=== PATIENT | female | born 1985 | race Caucasian/White ===

== ENCOUNTER 2016-07-05 10:27 | Inpatient (IN) | payer OTHER ==
[2016-07-05] VITALS (7 sets, daily range): BP systolic 94–151; BP diastolic 54–78
[~2016-07-05] VITALS: Ht 167.6 cm; Wt 118.0 kg
[~2016-07-05 10:27] MED LIST: DOCU10CA PO; FERR325T3 PO; OXYC1TAB23 PO; PERCOCET PO; PRENATAL VITAMIN PO
[2016-07-05] MEDS ORDERED: TYLE325T5 PO (10:44)
[2016-07-05 13:12] LABS: BASO % 0.2 % (0.0-1.0); EOS # 0.1 K/mm3 (0.0-0.50); EOS % 0.7 % (0.0-3.0); LARGE UNSTAINED CELL # 0.1 K/mm3 (0.0-0.4); LARGE UNSTAINED CELL % 0.9 % (0.0-4.0); LYMPH # 1.5 K/mm3 (1.5-4.5); LYMPH % 12.9 % (24.0-44.0); MEAN CORPUSCULAR HEMOGLOBIN 31.6 pg (27.0-33.0); MEAN CORPUSCULAR VOLUME 93.1 fl (80.0-96.0); MONO # 0.5 K/mm3 (0.0-0.8); MONO % 4.1 % (0.0-5.0); NEUTROPHILS # 9.6 K/mm3 (1.8-7.7); NEUTROPHILS % 81.2 % (36.0-66.0); PLATELET COUNT, AUTOMATED 200 k/mm3 (150-450); RED CELL DISTRIBUTION WIDTH 13.6 % (11.5-14.5); WHITE BLOOD COUNT 11.8 K/mm3 (4.0-10.0)
[2016-07-05] MEDS ORDERED: LR 1,000 ML IV SCH (16:57)
[2016-07-05] MEDS ORDERED: OXYTOCIN DRIP 30 UNITS in APPROPRIATE DILUENT 1 EA IV SCH (17:00)
[2016-07-05] MEDS ORDERED: ACETAMINOPHEN 500 MG TAB PO ONE (21:15)
[2016-07-06] VITALS (7 sets, daily range): BP systolic 101–131; BP diastolic 55–75
[2016-07-06] MEDS ORDERED: REFRIGERATOR IV KEYS XX PRN (03:15)
[2016-07-06] MEDS ORDERED: EPIDURAL COMMENT XX SCH (03:15)
[2016-07-06] MEDS ORDERED: ONDANSETRON 4MG/2ML VIAL (J2405) IV PRN ×3 (03:15→12:00)
[2016-07-06] MEDS ORDERED: diphenhydrAMINE INJ 50MG/ML VIAL (J1200) IV PRN ×2 (03:15→08:30)
[2016-07-06] MEDS ORDERED: NALOXONE INJ 0.4 MG/1 ML VIAL (J2310) IV PRN (03:15)
[2016-07-06] MEDS ORDERED: ePHEDrine SULFATE 25 MG/5 ML(5MG/ML) SYRINGE IV PRN (03:15)
[2016-07-06] MEDS ORDERED: EPIDURAL/PCA KEYS XX PRN (03:15)
[2016-07-06] MEDS ORDERED: FENTANYL/ROPIVACAINE/NACL BAG 200 ML EPIDURAL SCH (03:15)
[2016-07-06] MEDS ORDERED: LACTATED RINGER'S 1000 ML IV PRN (03:15)
[2016-07-06] MEDS ORDERED: ceFAZolin 2 GM/D5W 50 ML IV BAG (J0690) As Ordered ONE (06:35)
[2016-07-06] MEDS ORDERED: BICITRA 30ML SOLN UDC As Ordered ONE (06:35)
[2016-07-06] MEDS ORDERED: ACETAMINOPHEN 650 MG SUPP As Ordered ONE (06:36)
[2016-07-06] MEDS ORDERED: BUPIVACAINE HCL 0.25% 30 ML VIAL As Ordered ONE (06:36)
[2016-07-06] MEDS ORDERED: BUPIVACAINE HCL 0.25% 10 ML VIAL As Ordered ONE (06:37)
[2016-07-06] MEDS ORDERED: ACETAMINOPHEN 650 MG SUPP PR SCH (06:45)
[2016-07-06] MEDS ORDERED: BICITRA 30ML SOLN UDC PO ONE (06:45)
[2016-07-06] MEDS ORDERED: BUPIVACAINE HCL 0.25% 10 ML VIAL SC ONE (06:45)
[2016-07-06] MEDS ORDERED: ePHEDrine SULFATE 25 MG/5 ML(5MG/ML) SYRINGE As Ordered ONE (06:58)
[2016-07-06] MEDS ORDERED: LIDOCAINE 2% W/EPIN INJ 20ML **PRES FREE As Ordered ONE (06:58)
[2016-07-06] MEDS ORDERED: ONDANSETRON 4MG/2ML VIAL (J2405) As Ordered ONE (06:58)
[2016-07-06] MEDS ORDERED: OXYTOCIN INJ 10 UNITS/ML VIAL (J2590) As Ordered ONE ×3 (06:58→07:18)
[2016-07-06] MEDS ORDERED: SODIUM BICARBONATE 8.4% INJ 50MEQ 50 ML VIAL As Ordered ONE (06:58)
[2016-07-06] MEDS ORDERED: KETOROLAC 60 MG/2 ML VIAL (J1885) As Ordered ONE (06:58)
[2016-07-06] MEDS ORDERED: dexameTHASONE 4 MG/ML 1ML VIAL (J1100) As Ordered ONE (06:58)
[2016-07-06] MEDS ORDERED: MORPHINE PRES-FREE INJ 10 MG/10 ML VIAL (J2274) As Ordered ONE (07:23)
[2016-07-06 07:25] LABS: CORD GAS ABE A -0.8; CORD GAS HCO3 A 26.3 MEQ/L; CORD GAS HCO3 V 23.7 MEQ/L; CORD GAS O2 SAT A 47.2 %; CORD GAS O2 SAT V 80.3 %; CORD GAS PCO2 A 52.5 mmHg; CORD GAS PCO2 V 43.6 mmHg; CORD GAS PH A 7.317 UNITS; CORD GAS PH V 7.353 UNITS; CORD GAS PO2 A 22.5 mmHg; CORD GAS SBC A 22.6 MEQ/L; CORD GAS SBC V 22.4 MEQ/L; CORD GAS TCO2 A 27.9 MEQ/L
[2016-07-06] MEDS ORDERED: HYDROmorphone HCL 1 MG/ML SYRINGE (J1170) IV PRN (08:30)
[2016-07-06] MEDS ORDERED: NALBUPHINE HCL 10 MG/ML AMP (J2300) IV PRN (08:30)
[2016-07-06] MEDS ORDERED: MEPERIDINE INJ 25 MG/ML VIAL (J2175) IV PRN (08:30)
[2016-07-06] MEDS ORDERED: LR 1,000 ML IV SCH (08:30)
[2016-07-06] MEDS ORDERED: PERCOCET 5MG/325MG TAB PO PRN ×2 (08:30→12:00)
[2016-07-06] MEDS ORDERED: fentaNYL 100 MCG/2 ML INJECTION (J3010) IV PRN (08:30)
[2016-07-06] MEDS ORDERED: METOCLOPRAMIDE INJ 10MG/2ML VIAL (J2765) IV PRN (08:30)
--- NOTE | 2016-07-06 08:31 | RO ---
DATE OF PROCEDURE: 07/06/2016 PREOPERATIVE DIAGNOSES: Failed trial of labor after (TOLAC), failure to descend, failure to dilate non-reassuring heart strip, deep transverse arrest, asynclitism. POSTOPERATIVE DIAGNOSES: Failed trial of labor after (TOLAC), failure to descend, failure to dilate non-reassuring heart strip, deep transverse arrest, asynclitism. OPERATION PROPOSED: Repeat section. OPERATION PERFORMED: Repeat SURGEON: Dr. Milton Caal HOGSHEAD OPENER: Dr. Leonard Mock. ANESTHESIA: Epidural plus local anesthetic for intraperitoneal procedures. ESTIMATED BLOOD LOSS: 500 mL DESCRIPTION OF PROCEDURE: Under adequate anesthesia, prepped, draped the supine position, a Miner catheter in the bladder draining clear urine, sequential on board. Acetaminophen suppository 39 mg per rectum, 2 grams of Ancef IV preop. Time-out was adequate. A low transverse incision was made through the previous layers, passing through abdominal layers securing hemostasis. Opening peritoneal cavity interestingly that the head was pointing into the right lower quadrant completely not in the vaginal canal. Low transverse incision was made into the uterus with the uterine lower segment very thin. The patient had been laboring. Clear liquor. We delivered a live female infant weighing 9 pounds 9 ounces 4324 grams, of 9 and 10 at one and five minutes respectively. Arterial and venous pH was performed. Uterus contracted well under Pitocin. Manual removal of placenta and sweeping the uterus with a dry sponge. No evidence of retained products or membranes. The lower segment was oversewn in usual fashion in two layers and reperitonealization was performed. With instrument and pad counts correct, ovaries and tubes appeared to be normal, the uterus contracted well under Pitocin. The abdomen then closed running stitch for the peritoneum, same for the fascia, interrupted subcutaneous Dexon to the skin. Marcaine 0.25%, 7 mL. We then used Mastisol and Prevena wound VAC. The patient had one previously and is well versed on what to do on how to maintain it. The patient tolerated procedure well was taken to recovery.
[2016-07-06] MEDS: PRENATAL VITAMIN TAB PO SCH (09:00)
[2016-07-06] MEDS: LR 1,000 ML IV SCH ×3 (11:53→23:56)
[2016-07-06] MEDS ORDERED: RHOGAM 300 MCG (1500 IU) INJ (J2790) IM SCH (12:00)
[2016-07-06] MEDS ORDERED: MEASLES,MUMPS,RUBELLA VACCINE INJ (MMR-II) (90707) SC SCH (12:00)
[2016-07-06] MEDS: KETOROLAC 30 MG/ML VIAL (J1885) IV SCH ×2 (13:55→18:47)
[2016-07-06] MEDS: DOCUSATE SODIUM 100 MG CAP PO SCH (22:54)
[2016-07-07] MEDS: KETOROLAC 30 MG/ML VIAL (J1885) IV SCH ×2 (00:48→06:22)
[2016-07-07 02:00] VITALS: BP 126/58
[2016-07-07 06:00] VITALS: BP 119/56
--- NOTE | 2016-07-07 06:53 | IPNPDOC ---
Text Note Date of Service The patient was seen on 07/07/16. NOTE Post-Op Day 1 Waleska is a 31yo [id number] doing well on post-op day 1 s/p uncomplicated RLTCS indicated for arrest of dilation at 41w0d after presenting for induction of labor for late term gestation and progressing to 8cm. She is . Lochia normal, spontaneously voiding and ambulating without difficulty. Tolerating regular diet. Denies f/c/n/v/SOB/CP/GORE/abdominal pain. Vitals wnl, afebrile Exam: General: WDWN, NAD, resting comfortably Cardiac: S1S2 present, no murmurs Lungs: CTAB, no w/c/r Abdomen: soft, NTTP, fundus firm u-2cm, pfannensteil covered by functioning wound vac with no surrounding erythema Extremities: no tenderness of calves bilaterally Labs: H/H (admission) 13.5/39.7 H/H (POD 1) pending Assessment: Waleska is a 31yo [id number] doing well on post-op day 1 s/p uncomplicated RLTCS indicated for arrest of dilation at 41w0d after presenting for induction of labor for late term gestation and progressing to 8cm. Vitals wnl, benign exam. No e/o infection, hemodynamically stable. Plan: -routine /post-operative care -percocet and motrin prn pain -regular diet -encourage /ambulation/use of IS -routine wound vac care -likely discharge to home tomorrow Dr. Raymond Breen MD [place] [facility], I+O Tamika SALES I+O Vital Signs Date Time Temp Pulse Resp B/P Pulse Ox O2 Delivery O2 Flow Rate FiO2 07/07/16 06:00 98.2 101 18 119/56 99 Room Air I&O- Last 24 Hours up to 6 AM 07/07/16 06:00 Intake Total 124 ml Output Total 2400 ml Balance -2276 ml RAYMOND BREEN MD Jul 07, 2016 06:53
[2016-07-07 08:35] LABS: MEAN CORPUSCULAR HEMOGLOBIN 32.6 pg (27.0-33.0); MEAN CORPUSCULAR HGB CONC 34.5 g/dl (32.0-36.5); MEAN CORPUSCULAR VOLUME 94.4 fl (80.0-96.0); RED CELL DISTRIBUTION WIDTH 13.5 % (11.5-14.5); WHITE BLOOD COUNT 11.4 K/mm3 (4.0-10.0)
[2016-07-07] MEDS: DOCUSATE SODIUM 100 MG CAP PO SCH ×2 (08:41→20:47)
[2016-07-07] MEDS: PRENATAL VITAMIN TAB PO SCH (08:41)
[2016-07-07] MEDS: PERCOCET 5MG/325MG TAB PO PRN ×3 (12:04→20:49)
[2016-07-07 14:05] VITALS: BP 126/65
[2016-07-07] MEDS: IBUPROFEN 800 MG TAB PO SCH ×2 (14:48→23:15)
[2016-07-07 18:09] VITALS: BP 133/76
[2016-07-08] MEDS: PERCOCET 5MG/325MG TAB PO PRN ×3 (00:39→09:10)
[2016-07-08 05:39] VITALS: BP 133/71
[2016-07-08] MEDS: IBUPROFEN 800 MG TAB PO SCH (06:35)
[2016-07-08] MEDS ORDERED: COLA100C PO (07:19)
[2016-07-08] MEDS ORDERED: IBUP-1114 PO (07:20)
[2016-07-08] MEDS ORDERED: OXYC1TAB23 PO ×2 (07:20→07:21)
[2016-07-08] MEDS: DOCUSATE SODIUM 100 MG CAP PO SCH (09:10)
[2016-07-08] MEDS: PRENATAL VITAMIN TAB PO SCH (09:10)
== END 2016-07-08 11:55 | disposition home or self-care (01) | DRG 766 ==
LOC: M LDI 10:27 → M OBS 07-06 09:26
PROVIDERS: ADMIT Advanced Practice Midwife; ATTEND Advanced Practice Midwife
PROC: 3E033VJ Introduction of Other Hormone into Peripheral Vein, Percutaneous Approach (ICD-10-PCS; 2016-07-05)
PROC: 10D00Z1 Extraction of Products of Conception, Low, Open Approach (ICD-10-PCS; principal; 2016-07-06 06:44)
DX: O32.4XX0 Maternal care for high head at term, not applicable or unspecified (principal); Z37.0 Single live birth; O34.211 Maternal care for low transverse scar from previous cesarean delivery; O76 Abnormality in fetal heart rate and rhythm complicating labor and delivery; O62.0 Primary inadequate contractions; O66.41 Failed attempted vaginal birth after previous cesarean delivery; O48.0 Post-term pregnancy; Z3A.41 41 weeks gestation of pregnancy

== ENCOUNTER 2016-08-02 17:12 | Emergency (ER) | payer OTHER ==
[~2016-08-02] VITALS: Ht 167.6 cm; Wt 108.9 kg
[~2016-08-02 17:12] MED LIST changes: +COLA100C3 PO; +IBUP-1114 PO; +TYLE325T5 PO
[2016-08-02 17:54] LABS: MEAN CORPUSCULAR HGB CONC 35.1 g/dl (32.0-36.5); RED CELL DISTRIBUTION WIDTH 12.4 % (11.5-14.5); WHITE BLOOD COUNT 9.1 K/mm3 (4.0-10.0)
--- NOTE | 2016-08-02 19:07 | REP ---
ABDOMINAL ULTRASOUND: HISTORY: Assess for incision abscess. COMPARISON: None. Multiple ultrasonographic images over the region of interest show a 1 x 0.5 x 1.4 cm sized irregular hypoechoic area suggesting a small deep subcutaneous abscess versus resolving hematoma. This needs to be correlated clinically with appropriate followup. Signed by Vinnie Desai DO 08/02/2016 07:29 P
[2016-08-02] MEDS ORDERED: KEFL500C7 PO (20:58)
[2016-08-02] MEDS ORDERED: CEPHALEXIN 500 MG CAP PO ONE (21:00)
[2016-08-02 21:09] VITALS: BP 149/81
== END 2016-08-02 21:16 | disposition home or self-care (01) ==
LOC: M ED 17:42
DX: O86.0 Infection of obstetric surgical wound (principal); Y92.9 Unspecified place or not applicable; Y93.9 Activity, unspecified; Z79.899 Other long term (current) drug therapy

== ENCOUNTER → 2016-09-23 | Outpatient (CLI) | payer OTHER ==
[~2016-09-23] MED LIST changes: -COLA100C3 PO; +COLA100C5 PO; +IBUP200T45 PO; +KEFL500C17 PO
--- NOTE | 2016-10-06 00:32 | ECWPNPC ---
PATIENT NAME: LE SAINZ : 1985 GENDER: FEMALE VISIT DATE: 09/23/2016 DISCHARGE DATE: 09/23/16 1243 VISIT LOCKED DATE TIME: PHYSICIAN: DARI VIZCARRA RESOURCE: DARI VIZCARRA REASON FOR APPOINTMENT 1. LUMBAR HISTORY OF PRESENT ILLNESS NEW PATIENT CONSULT: 31 Y/O FEMALE,FT [employer]UM SOL[employer]ER REFERRED BY [facility] FOR EVALUATION OF LOW BACK PAIN L>R.PAIN BEGAN AFTER BASIC TRAINING IN 2012.PAIN IS NON RADICULAR IN NATURE.PAIN IS AGGREVATED BY LIFTING,STANDING ,RUNNING AND JUMPING.HAD BABY GOMEZ 3 MONTHS AGO AND IS FINDING IT HARD FOR HER TO PICK HER UP AND CARE FOR HER DUE TO PAIN.RATING PAIN VAS 5/10.PAIN IS RELIEVED SOMEWHAT WITH LAYING DOWN AND NSAIDS.PAIN IS WORSE IN AM AND PM.DENIES RECENT FEVER,ILLNESS OR WEIGHT LOSS.DENIES BOWEL OR BLADDER INCONTINENCE.HAS HAD PT IN 2013 WITH NO IMPROVEMENT.HAS HAD RADIOFREQUENCY IN PAST IN 2015 WITH REPORTED IMPROVEMENT UNTIL PAST FEW MONTHS.PATIENT WOULD LIKE TO PURSUE RADIOFREQUENCY AGAIN. WHEN DID YOUR PAIN FIRST START? . BRIEFLY DESCRIBE HOW YOUR PAIN STARTED? . HOW DOES YOUR PAIN CHANGE WITH TIME? . DOES YOUR PAIN AWAKEN YOU FROM SLEEP? . HOW MANY HOURS OF SLEEP DO YOU NORMALLY GET? . ANY DIAGNOSTIC TESTING? . FACILITY WHERE TESTS WERE DONE? ____. PAIN TREATMENT TREATMENT YES CANCER HAVE YOU EVER HAD ANY TYPE OF CANCER?NO NO. 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 SURGICAL HISTORY APPENDECTOMY 06/2010 C-SECTIONS 2014 AND 2016 FAMILY HISTORY FATHER: ALIVE MOTHER: ALIVE 1 SISTER(S) - HEALTHY. 2DAUGHTER(S) - HEALTHY. SOCIAL HISTORY GENERAL: TOBACCO USE ARE YOU A:NONSMOKER RECREATIONAL DRUG USE DRUG USE?NO CAFFEINE CAFFEINE USE?YES HOW OFTEN AND HOW MUCH? 2 CUPS COFFEE/DAY AND 2-3 CANS SODA PER DAY GNOSTICISM [id number] NONE LANGUAGE LANGUAGES SPOKEN:PRYDEINIG LEARNING BARRIERS / SPECIAL NEEDS BARRIERS TO LEARNING?NO HEARING IMPAIRED?NO VISION IMPAIRED?NO COGNITIVELY IMPAIRED?NO READINESS TO LEARN?YES LEARNING PREFERENCES?NO LEARNING CAPABILITIES PRESENT?YES EMOTIONAL BARRIERS?NO SPECIAL DEVICES?NO DIRECTOR OF FEDERAL SALES NEEDED?NO PSYCHOLOGICAL HX TREATMENTNO PAIN CLINIC PFS, CLERGY, PUBLIC HEALTH REFERRALS PFS REFERRAL NEEDED?NO CLERGY REFERRAL NEEDED?NO PUBLIC HEALTH REFERRAL NEEDED?NO WAS THE PROVIDER NOTIFIED OF ANY PERTINENT INFO?NO HAS THE PATIENT BEEN EDUCATED REGARDING HIS/HER PLAN OF CARE?YES HAS THE PATIENT BEEN EDUCATED REGARDING PAIN, THE RISK FOR PAIN, THE IMPORTANCE OF EFFECTIVE PAIN MANAGEMENT, AND THE PAIN ASSESSMENT PROCESS?YES PATIENT: ____. ADVANCE DIRECTIVES HEALTH CARE PROXY?NO WOULD YOU LIKE MORE INFORMATION?NO DO YOU HAVE A DNR?NO WOULD YOU LIKE MORE INFORMATION?NO LIVING WILL?NO WOULD YOU LIKE MORE INFORMATION?NO POWER OF TUBE SIZER OPERATOR?NO WOULD YOU LIKE MORE INFORMATION?NO REVIEW OF SYSTEMS REVIEWED BY: PROVIDER: DARI MARIE . CONSTITUTIONAL: ANY CHANGE IN YOUR MEDICAL CONDITION? NO . CHILLS NO . FEVER NO . INFECTION: DO YOU HAVE NEW INFECTIONS? NO . DO YOU HAVE HISTORY OF MRSA? NO . MUSCULOSKELETAL: ANY NEW PATTERNS OF PAIN OR NUMBNESS? NO . SYTEMIC LUPUS NO . GASTROENTEROLOGY: ANY NEW CHANGE IN BOWEL CONTROL? NO . BARRETTS ESOPHAGUS NO . CIRRHOSIS NO . HEPATITIS NO . LIVER FAILURE NO . ACID REFLUX NO . UNEXPLAINED WEIGHT LOSS NO . GENITOURINARY: ANY NEW CHANGE IN BLADDER CONTROL? NO . IS THERE A CHANCE YOU COULD BE ? NO . HEMATOLOGY/LYMPH: DO YOU TAKE ANY BLOOD THINNERS? (FOR EXAMPLE- COUMADIN, PLAVIX, AGGRENOX, PLATEL, PRADAXA, OR XARELTO) NO . WHEN WAS YOUR LAST DOSE? DATE: TIME: . LOW PLATELET COUNT NO . SICKLE CELL DISEASE NO . VON WILLIEBRANDS NO . FACTOR V LEIDEN NO . THALLASEMIA NO . ANEMIA NO . EASY BRUISING NO . NEUROLOGY: HAVE YOU FALLEN IN THE PAST 6 MONTHS? NO . ANY NEW EXTREMITY NUMBNESS OR WEAKNESS? NO . HEAD INJURY NO . DEMENTIA NO . CEREBRAL PALSY NO . MULTIPLE SCLEROSIS NO . DIZZINESS NO . HEADACHE NO . STROKES NO . VERTIGO NO . CARDIOLOGY: DO YOU HAVE A PACEMAKER OR DEFIBRILLATOR? NO . ANGINA NO . HEART ATTACK NO . HEART SURGERY NO . CONGESTIVE HEART FAILURE/FLUID OVERLOAD NO . CHEST PAIN NO . HIGH BLOOD PRESSURE NO . IRREGULAR HEART BEAT NO . RESPIRATORY: HAVE YOU BEEN SICK IN THE PAST WEEK? YES . FEVER NO . FLU LIKE SYMPTOMS? NO . CPAP NO . BYPAP NO . ASTHMA NO . EMPHYSEMA NO . CHRONIC LUNG DISEASES NO . SHORTNESS OF BREATH ON EXERTION NO . DO YOU USE ANY TYPE OF TOBACCO (SMOKE, SMOKELESS, CHEW)? NO . COUGH NO . SNORING NO . INTEGUMENTARY: DO YOU HAVE ANY RASHES OR OPEN SORES? NO . ALLERGIC/IMMUNO: ARE YOU ALLERGIC TO SHELLFISH OR IV DYE? NO . ANY NEW ALLERGIES? NO . PSYCHIATRIC: DO YOU HAVE THOUGHTS OF HURTING YOURSELF OR SOMEONE ELSE? NO . ARE YOU ABUSED, NEGLECTED, OR IN AN UNSAFE ENVIRONMENT? NO . ENDOCRINOLOGY: ARE YOU DIABETIC? NO . THYROID DISORDER NO . OTHER: DO YOU NEED ANY PRESCRIPTIONS? YES . IF YES, PLEASE LIST: &QUOT;INTERESTED IN CELEBREX&QUOT; . ANY NEW PROBLEMS WITH YOUR MEDICATIONS? NO . WHEN DID YOU LAST EAT? ____ . WHEN DID YOU LAST DRINK? ____ . WHAT DID YOU LAST DRINK? ____ . NAME OF PERSON DRIVING YOU HOME? ____ . DO YOU HAVE ANY OTHER QUESTIONS OR CONCERNS YES, OPTIONS FOR TREATMENT . VITAL SIGNS WT 240 LBS, HT 56 IN, BMI 53.80 INDEX, BP 131/82 MM HG, HR 89 /MIN, RR 18 /MIN, TEMP 97.2 F, OXYGEN SAT % 96, NA INITIALS [id number], REVIEWED BY: CS. EXAMINATION GENERAL EXAMINATION: GENERAL APPEARANCE:ALERT AND ORIENTED.NO ACUTE DISTRESS. PSYCHAFFECT FLAT. NECK:NO LYMPHADENOPATHY, NO MASS. LUNGS:LUNG MERCHANT ARE CLEAR TO AUSCULTATION BILATERALLY. GOOD MOVEMENT OF AIR. HEART:S1, S2 IN A REGULAR RATE AND RHYTHM. NO SIGNIFICANT MURMURS, RUBS OR GALLOPS NOTED. ABDOMEN:SOFT, NON-TENDER, NO ORGANOMEGALY, BOWEL SOUNDS ARE NORMAL. LUMBAR SPINE/LOWER BACK: PALPATION:SPECIFIC POINT TENDERNESS OVER LEFT L4/5-L5/S1 FACET WITH FACET LOADING. MOTOR SYSTEM:5/5 BLE. SENSORY EXAM:NORMAL BILATERAL LE. REFLEXES:2/4 AND SYMMETRIC BLE. ASSESSMENTS LUMBOSACRAL SPONDYLOLYSIS - M43.07 (PRIMARY) TREATMENT LUMBOSACRAL SPONDYLOLYSIS START CELEBREX CAPSULE, 200 MG, 1 CAPSULE WITH FOOD, ORALLY, ONCE A DAY, 30 DAY(S), 30, REFILLS 2 NOTES: REQUEST DIAGNOSTIC L3/4-L4/5-DIAGNOSTIC LUMBAR FACET BLOCK. DIAGNOSTIC IMAGING [facility] MRI SPINE, L.S. WITHOUT [id number] PREVENTIVE MEDICINE PAIN CLINIC TEACHING: MEDICATIONS CELEBREX INFORMATION DISCUSSED WITH PATIENT. PROCEDURE TEACHING PRE-PROCEDURE INSTRUCTIONS GIVEN TO PATIENT. PATIENT HAS HAD THIS PROCEDURE IN THE PAST.. PROCEDURE CODES FA211 ESTABILISHED PATIENT [facility] CHARGE DISPOSITION & COMMUNICATION FOLLOW UP 2WK POST (REASON: REQUEST DIAGNOSTIC L3/4-L4/5-DIAGNOSTIC LUMBAR FACET BLOCK) ELECTRONICALLY SIGNED BY FRANK FUNG ON 10/05/2016 AT 05:27 PM EDT DISCLAIMER : THIS IS A VISIT SUMMARY EXTRACTED FROM THE [employer] CHART. IT IS NOT A COPY OF THE [employer] PROGRESS NOTE. TRUPTI
== END ==
LOC: M PAIN 11:20
PROVIDERS: ATTEND Nurse Practitioner Family
DX: M43.07 Spondylolysis, lumbosacral region (principal)

== ENCOUNTER 2016-11-25 03:15 | Emergency (ER) | payer OTHER ==
[~2016-11-25 03:15] MED LIST changes: -IBUP200T45 PO
[2016-11-25] MEDS ORDERED: IBUP200T45 PO (03:22)
[2016-11-25 06:34] LABS: BASO # 0.1 K/mm3 (0.0-0.2); EOS # 0.1 K/mm3 (0.0-0.50); EOS % 1.9 % (0.0-3.0); LARGE UNSTAINED CELL # 0.1 K/mm3 (0.0-0.4); LARGE UNSTAINED CELL % 1.6 % (0.0-4.0); LYMPH # 1.8 K/mm3 (1.5-4.5); LYMPH % 24.3 % (24.0-44.0); MEAN CORPUSCULAR HEMOGLOBIN 31.5 pg (27.0-33.0); MEAN CORPUSCULAR HGB CONC 34.2 g/dl (32.0-36.5); MEAN CORPUSCULAR VOLUME 92.2 fl (80.0-96.0); MONO # 0.3 K/mm3 (0.0-0.8); MONO % 3.6 % (0.0-5.0); NEUTROPHILS # 4.8 K/mm3 (1.8-7.7); NEUTROPHILS % 67.6 % (36.0-66.0); PLATELET COUNT, AUTOMATED 217 k/mm3 (150-450); RED CELL DISTRIBUTION WIDTH 12.7 % (11.5-14.5)
[2016-11-25 06:53] LABS: CONTROL LINE HCG INT CTR LINE PRESENT
[2016-11-25 06:57] LABS: ANION GAP 9 MEQ/L (8-16); BLOOD UREA NITROGEN 16 MG/DL (7-18); CALCIUM LEVEL 9.3 MG/DL (8.5-10.1); CARBON DIOXIDE LEVEL 25 MEQ/L (21-32); CHLORIDE LEVEL 109 MEQ/L (98-107); CREATININE FOR GFR 0.61 MG/DL (0.55-1.02); GLOMERULAR FILTRATION RATE > 60.0 (>60); GLUCOSE, FASTING 90 MG/DL (70-105); POTASSIUM SERUM 3.9 MEQ/L (3.5-5.1); SODIUM LEVEL 143 MEQ/L (136-145)
--- NOTE | 2016-11-25 08:00 | REP ---
Chest x-ray: Two views. History: Chest pain. Fluttering. . Comparison study: October 07, 2014 . Findings: The lungs are well inflated and free of infiltrate. The pleural angles are sharp. The heart size is normal. Pulmonary vasculature is not increased. No significant bony abnormality is seen. EKG monitoring electrodes overlie the chest. Impression: Negative chest x-ray. Signed by Richi Bonilla MD 11/25/2016 07:51 A
[2016-11-25 08:30] VITALS: BP 107/71
--- NOTE | 2016-11-25 08:52 | ECGEPIP ---
Stationary ECG Study [facility] - ED Test Date: 2016-11-25 Pat Name: EL SAINZ Department: Room: - Gender: F Dub Room Engineer: tk : [id number] Requested By: CITLALY El Order Number: [id number] Reading MD: Bhavna Villarreal Measurements Intervals [place] Rate: 77 P: 38 WI: 129 QRS: 21 QRSD: 113 T: 21 QT: 388 QTc: 439 Interpretive Statements SINUS RHYTHM MODERATE INTRAVENTRICULAR CONDUCTION DELAY DECREASED RATE 10/07/14 Electronically Signed On 11-25-2016 8:52:02 EDT by Bhavna Villarreal
== END 2016-11-25 08:32 | disposition home or self-care (01) ==
LOC: M ED 03:15
DX: R00.2 Palpitations (principal); M54.9 Dorsalgia, unspecified

== ENCOUNTER → 2016-12-20 | Outpatient (CLI) | payer OTHER ==
[~2016-12-20] MED LIST changes: +BUPIVACAINE HCL 0.25% 30 ML VIAL As Ordered ONE; +IBUP200T45 PO; +ISOVUE-M 300 61% 15ML VIAL (Q9967) As Ordered ONE; +LIDOCAINE 1% SDV INJ 30 ML VIAL As Ordered ONE
--- NOTE | 2016-12-20 12:29 | REP ---
Partial lumbar spine series: Two views. History: Left facet block for pain. 26 seconds of fluoroscopy time is reported. Findings: A sequence of two last image hold fluoroscopic spot radiographs of the lumbar spine document various needle positions and contrast injections associated with facet block procedure. Signed by Richi Bonilla MD 12/20/2016 02:15 P
--- NOTE | 2016-12-21 00:31 | ECWPNPC ---
PATIENT NAME: EL SAINZ : 1985 GENDER: FEMALE VISIT DATE: 12/20/2016 DISCHARGE DATE: 12/20/16 1130 VISIT LOCKED DATE TIME: PHYSICIAN: JAYSON DICKINSON RESOURCE: JAYSON DICKINSON REASON FOR APPOINTMENT 1. DIAGNOSTIC LUMBAR FACET BLOCK HISTORY OF PRESENT ILLNESS HISTORY OF PRESENT ILLNESS: PAIN THE PATIENT DESCRIBES THE PAIN... 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 SURGICAL HISTORY APPENDECTOMY 06/2010 C-SECTIONS 2014 AND 2016 FAMILY HISTORY FATHER: ALIVE MOTHER: ALIVE 1 SISTER(S) - HEALTHY. 2DAUGHTER(S) - HEALTHY. REVIEW OF SYSTEMS REVIEWED BY: PROVIDER: JAYSON DICKINSON MD . CONSTITUTIONAL: ANY CHANGE IN YOUR MEDICAL CONDITION? NO . CHILLS NO . FEVER NO . INFECTION: DO YOU HAVE NEW INFECTIONS? NO . DO YOU HAVE HISTORY OF MRSA? NO . MUSCULOSKELETAL: ANY NEW PATTERNS OF PAIN OR NUMBNESS? NO . GASTROENTEROLOGY: ANY NEW CHANGE IN BOWEL CONTROL? NO . GENITOURINARY: ANY NEW CHANGE IN BLADDER CONTROL? NO . IS THERE A CHANCE YOU COULD BE ? NO . HEMATOLOGY/LYMPH: DO YOU TAKE ANY BLOOD THINNERS? (FOR EXAMPLE- COUMADIN, PLAVIX, AGGRENOX, PLATEL, PRADAXA, OR XARELTO) NO . WHEN WAS YOUR LAST DOSE? DATE: TIME: . NEUROLOGY: HAVE YOU FALLEN IN THE PAST 6 MONTHS? NO . ANY NEW EXTREMITY NUMBNESS OR WEAKNESS? NO . CARDIOLOGY: DO YOU HAVE A PACEMAKER OR DEFIBRILLATOR? NO . RESPIRATORY: HAVE YOU BEEN SICK IN THE PAST WEEK? NO . FEVER NO . FLU LIKE SYMPTOMS? NO . COUGH NO . INTEGUMENTARY: DO YOU HAVE ANY RASHES OR OPEN SORES? NO . ALLERGIC/IMMUNO: ARE YOU ALLERGIC TO SHELLFISH OR IV DYE? NO . ANY NEW ALLERGIES? NO . PSYCHIATRIC: DO YOU HAVE THOUGHTS OF HURTING YOURSELF OR SOMEONE ELSE? NO . ARE YOU ABUSED, NEGLECTED, OR IN AN UNSAFE ENVIRONMENT? NO . ENDOCRINOLOGY: ARE YOU DIABETIC? NO . OTHER: DO YOU NEED ANY PRESCRIPTIONS? NO . IF YES, PLEASE LIST: ____ . ANY NEW PROBLEMS WITH YOUR MEDICATIONS? NO . WHEN DID YOU LAST EAT? ____9 PM LAST NIGHT 12-19-16 . WHEN DID YOU LAST DRINK? ____9 P LAST NIGHT 12-19-16 . WHAT DID YOU LAST DRINK? ____WATER . NAME OF PERSON DRIVING YOU HOME? ____ANTHONY . DO YOU HAVE ANY OTHER QUESTIONS OR CONCERNS NO . VITAL SIGNS WT 250.2 LBS, HT 56 IN, BMI 56.09 INDEX, BP 120/66 MM HG, HR 90 /MIN, RR 18 /MIN, TEMP 97.7 F, OXYGEN SAT % 97%, NA INITIALS SC 08:56. ASSESSMENTS SPONDYLOSIS WITHOUT MYELOPATHY OR RADICULOPATHY, LUMBAR REGION - M47.816 (PRIMARY) PROCEDURES PN LUMBAR FACET BLOCK DIAGNOSTIC PRE PROCEDURE DIAGNOSIS LUMBAR SPONDYLOSIS POST PROCEDURE DIAGNOSIS LUMBAR SPONDYLOSIS PROCEDURE LEFT L2-3 AND LEFT L3-4 FACET BLOCK DIAGNOSTIC NUMBER [address] JAYSON DICKINSON CALL CENTER CONSULTANT NONE ANESTHESIA LOCAL PRE PROCEDURE NOTE THE PATIENT WITH HISTORY OF CHRONIC LOW BACK PAIN. I EVALUATED THE PATIENT AND REVIEWED THE CHART. I WENT OVER THE RISKS, ALTERNATIVES, AND BENEFITS ASSOCIATED WITH THIS PROCEDURE. THE PATIENT WOULD LIKE TO PROCEED AND GAVE CONSENT TO PERFORM THE PROCEDURE. AGREED WITH THE PATIENT WE ARE DOING THIS PROCEDURE TO DETERMINE IF THE PATIENT IS A CANDIDATE FOR A RADIOFREQUENCY ABLATION OF THE FACETS JOINTS. THE PATIENT DENIES UNEXPLAINABLE WEIGHT LOSS, FEVER, CHILLS, OR NEW CHANGES IN URINARY OR BOWEL CONTROL DESCRIPTION OF PROCEDURE THE PATIENT WAS BROUGHT TO THE PROCEDURE ROOM AND PLACED IN THE PRONE POSITION. THE LUMBOSACRAL AREA WAS CLEANED WITH CHLORAPREP SOLUTION AND DRAPED ASEPTICALLY. THE PROCEDURE WAS DONE UNDER STERILE CONDITIONS. I CHECKED LATERALITY AND THE LEVEL WHERE THE PROCEDURE WAS GOING TO BE PERFORMED WITH THE PATIENT AND THE SUPPORTING STAFF AT THE MOMENT OF THE TIME OUT IN THE PROCEDURE ROOM. UNDER FLUOROSCOPIC GUIDANCE, TARGETS WERE SELECTED AT THE INTERSECTION OF THE LEFT TRANSVERSE PROCESS OF L2, L3, AND L4 WITH ITS RESPECTIVE SUPERIOR ARTICULAR PROCESS. LIDOCAINE WAS USED TO NUMB THE SKIN AND THE SUBCUTANEOUS TISSUE BELOW IT. SPINAL NEEDLE, 22-GAUGE WAS ADVANCED UNDER FLUOROSCOPIC GUIDANCE AND FOLLOWING PATIENT FEEDBACK UNTIL THE TARGETS WERE REACHED. POSITION OF THE NEEDLES WAS VERIFIED WITH AP AND LATERAL VIEWS. AFTER PROPER POSITION OF THE NEEDLES WAS ACHIEVED, ISOVUE-M DYE 30% 0.1 ML WAS INJECTED AT EACH SITE SHOWING ADEQUATE SPREAD OF THE DYE. THEN A SOLUTION OF 0.4 ML OF BUPIVACAINE 0.25% WAS INJECTED AT EACH SITE. THERE WAS NO EVIDENCE OF BLOOD, PARESTHESIA OR CEREBROSPINAL FLUID DURING THE PROCEDURE. THE PATIENT WAS SENT TO THE RECOVERY ROOM. THE PATIENT WAS MOVING THE EXTREMITIES AND DOING WELL. THERE WAS NO COMPLICATION DURING THE PROCEDURE. FLUOROSCOPY TIME WAS 26 SECONDS POST PROCEDURE NOTE THE PATIENT WILL DOCUMENT HIS PAIN LEVEL AND RESPONSE TO THIS PROCEDURE EVERY 30 MINUTES. THE PATIENT WILL BE SEEN IN A FOLLOW UP IN THE NEXT FEW WEEKS. FURTHER DETERMINATION FOR HIS CASE WILL BE DONE AT THE NEXT VISIT. INSTRUCTIONS WERE GIVEN, QUESTIONS WERE ANSWERED, AND THE PATIENT EXPRESSED UNDERSTANDING AND AGREED WITH THE PLAN. I HEIKE HERRING DOCUMENTED THE ABOVE INFORMATION ACTING A OIL DEVELOPER FOR DR. DICKINSON. I HAVE REVIEWED THE ABOVE DOCUMENT WRITTEN BY HEIKE HERRING SCRIBE AND I VERIFY THAT IT IS ACCURATE. DIAGNOSTIC IMAGING [facility] FACET BLOCK (PAIN)[id number] PROCEDURE CODES 29578 INJ PARAVERT F JNT L/S 1 LEV 6045F RADXPS IN END [id number] PXD 53411 INJ PARAVERT F JNT L/S 2 LEV DISPOSITION & COMMUNICATION FOLLOW UP 3 WEEKS ELECTRONICALLY SIGNED BY JAYSON DICKINSON MD ON 12/20/2016 AT 03:04 PM EDT DISCLAIMER : THIS IS A VISIT SUMMARY EXTRACTED FROM THE [employer] CHART. IT IS NOT A COPY OF THE [employer] PROGRESS NOTE. MTDD
== END ==
LOC: M PAIN 08:30
PROVIDERS: ATTEND Anesthesiology
DX: G89.29 Other chronic pain (principal); M47.816 Spondylosis without myelopathy or radiculopathy, lumbar region; M54.5 Low back pain; Z79.3 Long term (current) use of hormonal contraceptives; Z79.899 Other long term (current) drug therapy
CPT/HCPCS: 64493; 64494; Q9967

== ENCOUNTER → 2017-01-03 | Outpatient (CLI) | payer OTHER ==
[~2017-01-03] MED LIST changes: -BUPIVACAINE HCL 0.25% 30 ML VIAL As Ordered ONE; -ISOVUE-M 300 61% 15ML VIAL (Q9967) As Ordered ONE; -LIDOCAINE 1% SDV INJ 30 ML VIAL As Ordered ONE
--- NOTE | 2017-01-28 01:01 | ECWPNPC ---
PATIENT NAME: EL SAINZ : 1985 GENDER: FEMALE VISIT DATE: 01/03/2017 DISCHARGE DATE: 01/03/17 1159 VISIT LOCKED DATE TIME: PHYSICIAN: DARI VIZCARRA RESOURCE: DARI VIZCARRA REASON FOR APPOINTMENT 1. POST FACET HISTORY OF PRESENT ILLNESS HISTORY OF PRESENT ILLNESS: HERE FOR POST PROCEDURE F/U.HAD DIAGNOSTIC L2/3-L4/5-[id number] ON 12-20-16.HOURLY PAIN DIARY IS REVIEWED.THIS IS SHOWING 8-10HRS SIGNIFICANT ,>75% REDUCTION IN PAIN POST PROCEDURE.PAIN IS LOCATED ACROSS LOW BACK L>R.DISCUSSED TREATMENT OPTIONS.PATIENT IS MOVING AT END OF JANUARY.RATING PAIN VAS 5/10.DESCRIBES PAIN CONSTANT,ACHING AND BURNING.PAIN IS AGGREVATED BY LIFTING.PAIN IS RELIEVED SOMEWHAT WITH LEANING FORWARD . PAIN THE PATIENT DESCRIBES THE PAIN... 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 REVIEW OF SYSTEMS REVIEWED BY: PROVIDER: DARI VIZCARRA ADVERTISING SOLICITOR . CONSTITUTIONAL: ANY CHANGE IN YOUR MEDICAL CONDITION? NO . CHILLS NO . FEVER NO . INFECTION: DO YOU HAVE NEW INFECTIONS? NO . DO YOU HAVE HISTORY OF MRSA? NO . MUSCULOSKELETAL: ANY NEW PATTERNS OF PAIN OR NUMBNESS? NO . GASTROENTEROLOGY: ANY NEW CHANGE IN BOWEL CONTROL? NO . GENITOURINARY: ANY NEW CHANGE IN BLADDER CONTROL? NO . IS THERE A CHANCE YOU COULD BE ? NO . HEMATOLOGY/LYMPH: DO YOU TAKE ANY BLOOD THINNERS? (FOR EXAMPLE- COUMADIN, PLAVIX, AGGRENOX, PLATEL, PRADAXA, OR XARELTO) NO . WHEN WAS YOUR LAST DOSE? DATE: TIME: . NEUROLOGY: HAVE YOU FALLEN IN THE PAST 6 MONTHS? NO . ANY NEW EXTREMITY NUMBNESS OR WEAKNESS? NO . CARDIOLOGY: DO YOU HAVE A PACEMAKER OR DEFIBRILLATOR? NO . RESPIRATORY: HAVE YOU BEEN SICK IN THE PAST WEEK? NO . FEVER NO . FLU LIKE SYMPTOMS? NO . COUGH NO . INTEGUMENTARY: DO YOU HAVE ANY RASHES OR OPEN SORES? NO . ALLERGIC/IMMUNO: ARE YOU ALLERGIC TO SHELLFISH OR IV DYE? NO . ANY NEW ALLERGIES? NO . PSYCHIATRIC: DO YOU HAVE THOUGHTS OF HURTING YOURSELF OR SOMEONE ELSE? NO . ARE YOU ABUSED, NEGLECTED, OR IN AN UNSAFE ENVIRONMENT? NO . ENDOCRINOLOGY: ARE YOU DIABETIC? NO . OTHER: DO YOU NEED ANY PRESCRIPTIONS? NO . IF YES, PLEASE LIST: ____ . ANY NEW PROBLEMS WITH YOUR MEDICATIONS? NO . WHEN DID YOU LAST EAT? ____ . WHEN DID YOU LAST DRINK? ____ . WHAT DID YOU LAST DRINK? ____ . NAME OF PERSON DRIVING YOU HOME? ____ . DO YOU HAVE ANY OTHER QUESTIONS OR CONCERNS NO . VITAL SIGNS WT 244 LBS, HT 56 IN, BMI 54.70 INDEX, BP 134/78 MM HG, HR 83 /MIN, RR 16 /MIN, TEMP 97.4 F, OXYGEN SAT % 96%, NA INITIALS SC 11:19. EXAMINATION GENERAL EXAMINATION: GENERAL APPEARANCE:ALERT AND ORIENTED.NO ACUTE DISTRESS. PSYCHAFFECT FLAT. NECK:NO LYMPHADENOPATHY, NO MASS. LUNGS:LUNG MERCHANT ARE CLEAR TO AUSCULTATION BILATERALLY. GOOD MOVEMENT OF AIR. HEART:S1, S2 IN A REGULAR RATE AND RHYTHM. NO SIGNIFICANT MURMURS, RUBS OR GALLOPS NOTED. ABDOMEN:SOFT, NON-TENDER, NO ORGANOMEGALY, BOWEL SOUNDS ARE NORMAL. LUMBAR SPINE/LOWER BACK: PALPATION:SPECIFIC POINT TENDERNESS OVER LEFT L4/5-L5/S1 FACET WITH FACET LOADING. MOTOR SYSTEM:5/5 BLE. SENSORY EXAM:NORMAL BILATERAL LE. REFLEXES:2/4 AND SYMMETRIC BLE. ASSESSMENTS LUMBOSACRAL SPONDYLOLYSIS - M43.07 (PRIMARY) TREATMENT LUMBOSACRAL SPONDYLOLYSIS NOTES: L2/3-L3/4 DIAGNOSTIC FACET #2. PREVENTIVE MEDICINE DISCUSSED PRE PROCEDURE CARE WITH UNDERSTANDING EXPRESSED BY PT. PROCEDURE CODES FA211 ESTABILISHED PATIENT [facility] FACILITY CHARGE DISPOSITION & COMMUNICATION FOLLOW UP 1WK POST (REASON: L2/3-L3/4 DIAGNOSTIC FACET #2) ELECTRONICALLY SIGNED BY FRANK FUNG ON 01/27/2017 AT 06:03 PM EDT DISCLAIMER : THIS IS A VISIT SUMMARY EXTRACTED FROM THE [employer] CHART. IT IS NOT A COPY OF THE [employer] PROGRESS NOTE. TRUPTI
== END ==
LOC: M PAIN 10:45
PROVIDERS: ATTEND Nurse Practitioner Family
DX: G89.29 Other chronic pain (principal); M43.07 Spondylolysis, lumbosacral region; F41.9 Anxiety disorder, unspecified; Z79.899 Other long term (current) drug therapy